=== PATIENT | female | born 1975 | race Caucasian/White ===

== ENCOUNTER 2024-12-01 08:17 | Inpatient (IN) | payer BC ==
[2024-12-01] VITALS (21 sets, daily range): BP systolic 89–124; BP diastolic 59–79; PULSE 72–101; RESP 8–18; TEMP 97.8–98.6; O2SAT 41–100
[~2024-12-01] VITALS: Ht 167.6 cm; Wt 53.0 kg
[2024-12-01] MEDS: diatr meglu/diatrizoate 30ml oral sol.-(3 dose) bottle PO SCH (09:15)
--- NOTE | 2024-12-01 09:15 | Physician Documentation ---
History of Present Illness Chief Complaint: Abdominal Pain Stated Complaint: ABD PAIN Time Seen by MD: 09:02 HPI This is a 49-year-old female who presents for evaluation of abdominal pain, distention. She developed constipation about a week ago. She started taking MiraLax. She finally had a bowel movement three days ago. Since then she continues to have no bowel movement and developed significant abdominal distention. Normally has flat abdomen. She does report that pain is waxing and waning in its intensity, was most severe last night. Right now it is moderate. She had developed nausea or vomiting. Denies any other symptoms. Denies any chance of . Denies any concerns for tobacco, alcohol or illicit substances use Medication Reconciliation Allergies: Coded Allergies: amoxicillin (Unverified Allergy, Unknown, 12/01/24) Review of Systems ROS 10 point review of systems was performed and unless noted above in HPI is negative for acute process/complaint. Physical Exam Vital Signs: Temperature: 98.1, Heart Rate: 116, Respiratory Rate: 16, BP: 149/82, Pulse Oximetry: 100, Weight: 53.000 Oxygen Flow Rate: 0 Physical Exam GENERAL: Awake, alert, oriented, GCS 15, no apparent distress, non-toxic appearing, answers questions, follows commands appropriately. Examined in bed 10. HEENT: Atraumatic, normocephalic, pupils equal, extraocular muscles intact, sclerae anicteric, mucus membranes moist, oropharynx is clear, no stridor. NECK: supple, full active range of motion, trachea midline, no thyromegaly, no lymphadenopathy, no JVD. CARDIOVASCULAR: regular rate/rhythm, no murmurs/gallops/rubs, Pulses are 2+ in all extremities and symmetric. Capillary refill less than 2 seconds. PULMONARY: Nonlabored, good air movement ,no respiratory distress, speaking in full sentences, clear to auscultation bilaterally, no wheezing, no ronchi, no rales, no accessory muscle use. GASTROINTESTINAL: Soft, mildly distended, diffusely tender to palpation, no guarding or rebound, normal active bowel sounds, no organomegaly, no pulsatile masses, no CVA tenderness. NEUROLOGIC: Lucid with normal mental status. Normal facial symmetry. Moves all extremities symmetrically and with purpose. No truncal ataxia. Speech is fluid without evidence of dysarthria or aphasia, no focal deficits appreciated. MUSCULOSKELETAL: There is full range of motion of all extremities. There is no joint pain or joint swelling or joint erythema. There is no muscle pain or tenderness or swelling. EXTREMITIES: warm, well-perfused, no cyanosis, no clubbing, no edema, no acute deformities. Skin: warm, dry, no rashes or lesions, no jaundice, no petechiae orpurpura. No ecchymosis. PSYCHIATRIC: Normal affect, normal insight, normal concentration. Focused exam: [] Progress Results/Orders Results/Orders Orders - YOSVANY HENRY DO Urinalysis, Cult If Indicated (12/01/24 08:26) Hcg, Ur Ql (12/01/24 08:26) Cbc/Diff (12/01/24 08:) BMP (12/01/24 08:) Lipase (12/01/24 08:26) CMP (12/01/24 08:) Vital Signs 12/01/24 08:18 Temp 98.1 Pulse 116 Resp 16 B/P (MAP) 149/82 Pulse Ox 100 O2 Flow Rate 0 Medical Decision Making Findings Facility Status: ED Holds, [facility] process The plan was discussed with the patient, who demonstrates clear understanding of the plan and is in agreement with the plan unless otherwise noted in the chart. All questions have been answered, all concerns were addressed unless otherwise documented. I was available throughout their ED stay for frequent reassessment and questions. Differential Diagnoses (considered and possible or likely): [Differential diagnosis considered includes acute appendicitis, acute cholecystitis, pancreatitis, gastritis, PUD, diverticulitis, mesenteric ischemia, abdominal aortic aneurysm, bowel obstruction, enteritis, colitis, fecal impaction, volvulus, IBS, inflammatory bowel disease, specific food intolerance, peritonitis, perforated viscous, malignancy, UTI, abscess, and abdominal pain NOS. Pelvic source of pain was also considered including endometritis, dysm enorrhea, ovarian cyst, ovarian torsion, PID, TOA, cervicitis, vaginitis, or uterine fibroid. History, physical exam, and workup exclude many of the more serious causes listed above. ] ??Differential Diagnoses (considered and unlikely, not requiring evaluation currently): [See above] MDM Data Please see HPI for the following: Independent Historians and external Records Review. Historian: [Patient] Independent Historians: ?[Record review] Medication Management: [Reviewed medication list] Social History and determinants: [Reviewed] Please see the body of the note for the following: Any independent interpretations of ECG, imaging studies. All vitals signs/haemodynamics, ordered tests were independently reviewed and interpreted by myself. Nursing triage complaint and vitals reviewed, additional nursing notes were reviewed as available and I agree unless otherwise noted or documented in contradiction in the chart Vital Signs: Independently reviewed Labs: Independently interpreted Imaging: Independently interpreted Old Medical Records: Independently reviewed, see HPI for relevant summary and information Pulse Oximetry: [98%] interpreted as [normal on room air] by me [Gaming Host: [Regular Rate, Regular rhythm, no ectopy, NSR] reviewed and interpreted by me] Additionally notably showing: [OrHemodynamics reviewed. The patient is tachycardic, improved with fluids, no evidence of hypotension respiratory distress. CBC is normal, no leukocytosis. Chemistry is essentially unremarkable except for very mild hypokalemia. Lipase is normal. She is not . UA is nondiagnostic for UTI. Imaging of the abdomen was obtained and the CT shows diffuse severe large bowel distention concerning for sigmoid volvulus versus high-grade narrowing of rectosigmoid colon.] Tests considered but not ordered include: [Not applicable] Social Determinants of Health Impact: Patient was evaluated in [facility] [place] to healthcare due to below par ratio of patient to medical providers. [] Comorbid Conditions Impacting Present Evaluation and Care/Treatment: [None] Management Discussions with other Healthcare Providers: [Dr. Heard, GI on- call. Recommend soapsuds enema trial, will consult on the patient. Also recommend surgical consultation. Dr. Castellanos, general surgeon on-call was contacted and HIPAA compliant message was left on his phone. Hospitalist regarding admission] Treatment and Disposition Medication Management (Given or considered): [Pain management]. See EMR for details Consideration for Hospitalization/Escalation/Deescalation of Care: Admission for observation has been considered, and is necessary for further management of her high-grade large bowel obstruction. ?ED Course:?[No clinical deterioration] ?Shared decision making:?[] Code status:?FULL Please see the full Electronic Medical Record for full details of nursing documentation, medications list, other records of complete past medical history and conditions, vital signs, laboratory studies, and any radiologic study interpretations by radiologists. Portions of this note were completed using [employer] dictation software and as a result there may exist minor errors in spel ling. I have reviewed elements of past family and social history and agree as included in note. Departure Disposition: ADMITTED INPATIENT Admitted to Inpatient Unit: to hospitalist Impression: Primary Impression: Large bowel obstruction Condition: Guarded Referrals: NO PRIMARY CARE PROVIDER (PCP) Signature Scribe Signature: No scribe Attestation: This note accurately reflects clinical decisions, work performed by myself, DO ELAINE Lutz NICHOLAS M DO Dec 01, 2024 09:15
[2024-12-01 09:39] LABS: MEAN PLATELET VOLUME 8.4 FL (7.4-10.4); RED CELL DISTRIBUTION WIDTH 12.6 % (11.5-14.5)
[2024-12-01 09:48] LABS: CREATININE 0.78 MG/DL (0.40-0.90); TOTAL CARBON DIOXIDE 29.1 MMOL/L (24-32); eCRCL 71 ML/MIN; eGFR 78 ML/MIN
[2024-12-01] MEDS: ondansetron/PF 4mg/2ml inj IV ONE (09:52)
[2024-12-01] MEDS: morphine 4 MG/ML inj SYRINge IV ONE (09:52)
[2024-12-01 10:17] LABS: LEUKOCYTE ESTERASE ,URINE NEGATIVE (Neg); NITRITES, URINE NEGATIVE (Neg); OCCULT BLOOD,URINE TRACE-INTACT (Neg)
[2024-12-01 10:22] LABS: UA COLLECTION TYPE URINAL
[2024-12-01] MEDS: IOHEXOL 12MG/ML oral solution 500 ML BOTTLE PO ONE (10:23)
[2024-12-01 10:24] LABS: MUCUS STRANDS MANY /LPF (Neg); SQUAMOUS EPITHELIAL CELL,UR MODERATE /LPF (FEW)
[2024-12-01] MEDS ORDERED: iohexol 300mg/ml 100ml inj. ONE (10:40)
--- NOTE | 2024-12-01 12:37 | RADIOLOGY REPORT ---
Exam: CT CT ABDOMEN PELVIS W/ IV ORAL CONTRAST History: Abdominal pain, distention, nausea vomiting COMPARISON: None Technique: Multidetector spiral CT of the abdomen and pelvis was performed from lung bases to pubic symphysis. Intravenous contrast was administered during this examination. Portal venous imaging was obtained. Axial, coronal and sagittal multiplanar reformats were performed by the technologist on a separate workstation. Radiation Dose : 1. Abdomen/Pelvis: CTDIvol 7.1 mGy, DLP 371 mGy*cm. Findings: Lung Bases: No acute or significant lung base finding. Normal heart size. No pleural or pericardial effusion. Liver: The liver is normal in size. No focal lesions. Normal hepatic vascular enhancement. Gallbladder and Biliary Tree: Unremarkable Spleen: Unremarkable Pancreas: The pancreas is normal in appearance without focal lesions or abnormal enhancement. Adrenal Glands: Unremarkable Kidneys: No hydronephrosis. Bladder: Unremarkable Bowel: The stomach is grossly normal in appearance. Severe diffuse large bowel distention. Possible narrowing of the sigmoid colon. The appendix is not visualized; however, no secondary findings of acute appendicitis identified. Ascites: Absent Lymphadenopathy: No mesenteric, retroperitoneal or periportal lymphadenopathy. Abdominal Wall and Mesentery: Unremarkable. Vasculature: The visualized abdominal aorta is normal in size and caliber. Abdominal and pelvic vessels demonstrate normal enhancement. Pelvic Organs: Unremarkable Musculoskeletal: No aggressive focal bony lesions, acute fractures or dislocation. IMPRESSION: Severe diffuse large bowel distention. Differential considerations could include sigmoid volvulus or high-grade narrowing of the rectosigmoid colon. GI and/or surgical consultation advised.
[2024-12-01] MEDS ORDERED: magnesium sulf-water 4G/100mL 100 ML IV PRN (13:20)
[2024-12-01] MEDS ORDERED: ondansetron/PF 4mg/2ml inj IV PRN (13:20)
[2024-12-01] MEDS ORDERED: mag hydrox/Alum hydrox/simeth 30ml oral suspension PO PRN (13:20)
[2024-12-01] MEDS ORDERED: potassium Cl 20 mEq SR tablet PO PRN (13:20)
[2024-12-01] MEDS ORDERED: magnesium hydroxide 30ml (MOM) UD suspension PO PRN (13:20)
[2024-12-01] MEDS ORDERED: magnesium sulf-water 2g/50mL 50 ML IV PRN (13:20)
[2024-12-01] MEDS: normal saline 1000ml 1,000 ML IV SCH (14:00)
[2024-12-01] MEDS: HYDROmorphone inj. 0.5 MG/0.5 ML DISP.SYRIN IV PRN (15:13)
[2024-12-01] MEDS ORDERED: diatr meglu/diatrizoate 30ml oral sol.-(3 dose) bottle ONE (15:19)
--- NOTE | 2024-12-01 16:34 | RADIOLOGY REPORT ---
EXAM: CT CT ABDOMEN PELVIS W/ RECTAL CON CONTRAST HISTORY: volvulus vs narrowing TECHNIQUE: Volumetric multidetector CT images of the abdomen and pelvis were obtained after the administration of intravenous contrast. All CT scans at this facility use dose modulation, iterative reconstruction, and/or weight based dosing when appropriate to reduce radiation dose to as low as reasonably achievable. COMPARISON: CT CT ABDOMEN PELVIS W/ IV ORAL CONTRAST on DOS: 12/01/24 FINDINGS: [LOWER CHEST]: The partially visualized lung bases are clear without a pleural effusion. intact bilateral breast implants. [LIVER]: Normal hepatic size without suspicious focal lesion. [GALLBLADDER AND BILIARY TREE]: No cholelithiasis. [SPLEEN]: Unremarkable. [PANCREAS]: Unremarkable. [ADRENAL GLANDS]: Unremarkable [KIDNEYS]: No hydronephrosis. No nephroureterolithiasis. No suspicious focal lesion. [BLADDER]: Decompressed with contrast internally [REPRODUCTIVE ORGANS]: Poorly visualized [BOWEL/MESENTERY]: Stomach is decompressed limiting its evaluation. Significant abnormal dilation of primarily of the colon measuring up to 6.9 cm. Rectal tube in place. Focal area of twisting located within the sigmoid colon compatible with sigmoid volvulus best appreciated on coronal view (series 601, image 38). [ASCITES]: Absent [LYMPHADENOPATHY]: No pathologically enlarged lymph nodes by CT size criteria [VASCULATURE]: No aneurysmal dilatation. [ABDOMINAL WALL]: Unremarkable. [MUSCULOSKELETAL]: No acute fracture or aggressive focal osseous lesion. IMPRESSION: 1. Sigmoid volvulus with significant abnormal dilation of the colon. 2. Downstream obstruction however overall appears incomplete secondary to rectal contrast extending beyond the twisting /narrowing.
--- NOTE | 2024-12-01 17:20 | CONSULTATION REPORT ---
Consult Providers to CC ~ History of Present Illness Reason for Admit\Complaint: Abdominal pain, distention History of Present Illness 49-year-old female who presents with the above complaints. Signs of symptoms initiated approximately 7 days ago. She denies any fever, chills. She admits to intermittent nausea and 1 or 2 episodes of vomiting. During the past week, she has tried laxatives. She states to have had small amounts of loose stool. Last bowel movement Allergies: Coded Allergies: amoxicillin (Unverified Allergy, Unknown, 12/01/24) Past Medical History Past Medical History Denies any significant past medical history Past Surgical History Surgical History Comment section x1 8 years ago Past Social History Social History Comment Denies any smoking, alcohol abuse or illicit drug use ROS ROS All within normal limits except HPI Exam Vitals: Vital Signs Date Time Temp Pulse Resp B/P (MAP) Pulse Ox O2 Delivery O2 Flow Rate FiO2 12/01/24 15:13 15 12/01/24 13:33 12/01/24 12:31 83 100 0 12/01/24 08:18 98.1 General: Well-nourished, mild distress HEENT: NC/AT, ROHIT, nonicteric, no nasal discharge, no pharyngeal exudates Neck: Supple, nontender Chest: Clear to auscultation Cardiovascular: Regular rate and rhythm Abdomen: Soft, distended, hypoactive bowel sounds, mild diffuse tenderness, no guarding, no rebound Extremities: No clubbing, cyanosis, or edema Central Nervous System: Alert and oriented x3, no gross or focal deficits Musculoskeletal: Good range of motion, no weaknesses Skin: Warm, dry, no diaphoresis Diagnostic Data Last Recorded Lab Results: 12/01/24 0911 12/01/24 0911 Diagnostic Data: EXAM: CT CT ABDOMEN PELVIS W/ RECTAL CON CONTRAST HISTORY: volvulus vs narrowing TECHNIQUE: Volumetric multidetector CT images of the abdomen and pelvis were obtained after the administration of intravenous contrast. All CT scans at this facility use dose modulation, iterative reconstruction, and/or weight based dosing when appropriate to reduce radiation dose to as low as reasonably achievable. COMPARISON: CT CT ABDOMEN PELVIS W/ IV ORAL CONTRAST on DOS: 12/01/24 FINDINGS: [LOWER CHEST]: The partially visualized lung bases are clear without a pleural effusion. intact bilateral breast implants. [LIVER]: Normal hepatic size without suspicious focal lesion. [GALLBLADDER AND BILIARY TREE]: No cholelithiasis. [SPLEEN]: Unremarkable. [PANCREAS]: Unremarkable. [ADRENAL GLANDS]: Unremarkable [KIDNEYS]: No hydronephrosis. No nephroureterolithiasis. No suspicious focal lesion. [BLADDER]: Decompressed with contrast internally [REPRODUCTIVE ORGANS]: Poorly visualized [BOWEL/MESENTERY]: Stomach is decompressed limiting its evaluation. Significant abnormal dilation of primarily of the colon measuring up to 6.9 cm. Rectal tube in place. Focal area of twisting located within the sigmoid colon compatible with sigmoid volvulus best appreciated on coronal view (series 601, image 38). [ASCITES]: Absent [LYMPHADENOPATHY]: No pathologically enlarged lymph nodes by CT size criteria [VASCULATURE]: No aneurysmal dilatation. [ABDOMINAL WALL]: Unremarkable. [MUSCULOSKELETAL]: No acute fracture or aggressive focal osseous lesion. IMPRESSION: 1. Sigmoid volvulus with significant abnormal dilation of the colon. 2. Downstream obstruction however overall appears incomplete secondary to rectal contrast extending beyond the twisting /narrowing. Problems: (1) Volvulus of sigmoid colon Status: Acute Assessment & Plan: Assessment: Sigmoid volvulus (as per CT findings). Plan: NPO, IV fluids. No plans for any emergent surgical intervention. Recommend colonoscopic decompression/detorsion. We will follow. PEDRO KAHN DO Dec 01, 2024 17:20
--- NOTE | 2024-12-01 17:42 | CONSULTATION REPORT - RESIDENT ---
Consult Providers to CC Resident Creating Document: MICHAELLIZBETH LOPESKETAN CAMACHO History of Present Illness Reason for Admit\Complaint: Sigmoid volvulus History of Present Illness 49-year-old very pleasant female without much past medical history presented to the ER with chief complaints of constipation, abdominal distention. She endorses that she is not passing stools and gas for the past 7 days. She reports abdominal distinct nonbleeding sensation for the past 7 days. She endorses vomiting for the past 1 day, 4-5 episodes, associated with fluid, green colored bile & associated with dry heaving but feeling better now. She denied fever, chills, jaundice, pedal edema, chest pain, palpations, shortness of breath, facial puffiness, slurring of speech, altered sensorium, weakness of limbs, seizures, deviation of angle of mouth. Allergies: Coded Allergies: amoxicillin (Unverified Allergy, Unknown, 12/01/24) Past Medical History Past Medical History Denies any specific past medical history Past Surgical History Surgical History Comment section, 18 years ago Past Social History Social History Comment Denies any smoking, alcohol abuse or illicit drug use ROS ROS All are negative except positive pertinent as in HPI Exam Vitals: Vital Signs Date Time Temp Pulse Resp B/P (MAP) Pulse Ox O2 Delivery O2 Flow Rate FiO2 12/01/24 15:13 15 12/01/24 13:33 12/01/24 12:31 83 100 0 12/01/24 08:18 98.1 General: General: Alert, awake, oriented to time place person. Well-nourished, not in acute distress HEENT: NC/AT, ROHIT, nonicteric, no nasal discharge, no pharyngeal exudates Neck: Supple, nontender Chest: Bilateral normal vesicular breath sounds heard. No crepitations/wheeze Cardiovascular: Regular rate and rhythm, S1-S2 heard, no murmurs/rubs/gallop Abdomen: Soft, distended, very sluggishly heard bowel sounds , mild diffuse tenderness, no guarding, no rebound tenderness. Extremities: No clubbing, cyanosis, or edema Central Nervous System: Alert and oriented x3, no gross or focal deficits Musculoskeletal: Good range of motion, no weaknesses Skin: Warm, dry, no diaphoresis Diagnostic Data Last Recorded Lab Results: 12/01/24 0911 12/01/24 0911 Additional Plan Sigmoid volvulus Vitals are stable CBC is normal Serum potassium is 3.2 CT abdomen shows diffuse large bowel distention. Contrast CT abdomen pelvis showed sigmoid volvulus with significant abdominal dilation of the colon with the downstream obstruction. NPO Continue IV fluids at the rate of 125 mL/hour We will plan for sigmoidoscopic decompression on today Continue Zofran 4 mg q.6h p.r.n. Hypokalemia Potassium is 3.2 Replace per potassium replacement IV protocol Joseph Win IM resident, PGY 2 Gastroenterology Date of Service: Dec 01, 2024 Billing Provider: BOLA ESCAMILLA MD, VENKATESH, RES Dec 01, 2024 17:42
[2024-12-01] MEDS ORDERED: SUMA100T PO (17:51)
[2024-12-01] MEDS ORDERED: fentaNYL/PF 50MCG/1 ML 2ML syringe ONE (18:37)
[2024-12-01] MEDS ORDERED: MIDAZolam 1 MG/ML 5ML VIAL ONE (18:38)
[2024-12-01] MEDS: enoxaparin 40mg/0.4ml syringe SQ SCH (20:00)
[2024-12-01] MEDS: K and/or MAG REPLACEMENT MC SCH (20:00)
[2024-12-01] MEDS ORDERED: metoclopramide 5 mg/ml inj IV PRN (21:10)
--- NOTE | 2024-12-01 21:10 | HISTORY AND PHYSICAL ---
History & Physical Providers to ~ History of Present Illness Reason for Admit\Complaint: Significant abdominal distention-sigmoid volvulus History of Present Illness This is a healthy 49-year-old female who presents for evaluation for abdominal pain in his distention. The patient has actually had issues and changes in bowel habits since she had a in 2016 however these were mild an over the last year however the patient has had change in her bowel habits and having a bowel movement every five days and the quality of the stools have changed and are more stringy and foamy. The patient had a colonoscopy in July however Dr Patton yard operator had informed the patient she did not have a good bowel prep and requested that the patient complete a bowel prep the following day the patient went back for a colonoscopy and was informed again that her bowel prep was not complete over the past six days the patient has had a significant abdominal distention and was experiencing severe pain initially however this the pain subsided and took MiraLax on five days ago and four days ago and has a bowel movement and has a another dose of MiraLax the following day however the distention did not improve the patient decided come to the ED and a CT scan demonstrated severe dilatation of the colon and a possible narrowing at the rectosigmoid junction a repeat CT scan with rectal contrast demonstrated a sigmoid volvulus the patient has since went for a colonoscopy decompression with Dr. Du and a rectal tube was placed past the volvulus and was evaluated by Dr. Castellanos surgeon who recommended keeping the rectal tube in and obtaining KUB is to monitor and to give Reglan IV 5 mg. Allergies: Coded Allergies: amoxicillin (Unverified Allergy, Unknown, 12/01/24) Home Medications Home Medications Active Reported Imitrex* (Sumatriptan Succinate) 100 Mg Tablet 1 Tab PO PRN PRN give 1 tablet at onset of headache. May repeat in 2 hours as needed. Do not exceed 200mg/day total. Past Medical History Past Medical History No chronic health issues Past Surgical History Surgical History Comment Family History Family History: Patient reports no known family medical history. Past Social History Social History Comment Patient denes history of smoking/ drinking alcohol nor any illicit drug use Full Code Status ROS ROS Except for positives in the HPI the rest of the 14 point review systems is negative Exam Vitals: Vital Signs Date Time Temp Pulse Resp B/P (MAP) Pulse Ox O2 Delivery O2 Flow Rate FiO2 12/01/24 20:30 79 12 112/60 (77) 100 Nasal Cannula 2.0 12/01/24 19:28 99.7 General: Gen. No acute distress alert and oriented 4 Lungs clear to ascultation bilaterally, no wheezes rales or rhonchi appreciated Heart normal sinus rhythm no murmurs rubs or clicks noted Abdomen significantly distended semi firm nontender bowel sounds are tympanic Lower extremities no clubbing cyanosis, nor edema appreciated bilaterally Diagnostic Data Last Recorded Lab Results: 12/01/24 0911 12/01/24 0911 Advance Care Planning Advanced Care plannin - 30 Minutes Problems: (1) Volvulus of sigmoid colon Status: Acute Additional Plan # sigmoid volvulus which was confirmed on CT scan with rectal contrast Status post decompression via colonoscopy with yard operator with a rectal tube past pass the volvulus Dr. Castellanos surgeon recommends keeping the rectal tube in follow daily KUB is and start scheduled Reglan 5 mg IV # hypokalemia Potassium replacement protocol # DVT prophylaxis SCDs I spent a total of 17 minutes on reviewing various resuscitative measures/ ACP with the patient at the time of admission. The patient has decided on full code status Date of Service: Dec 01, 2024 Billing Provider: CULLEN WORLEY DO Common Visit Codes: 08708-[id number] INP/OBS CARE (HIGH) Secondary Visit Codes: 58833-[id number] CARE PLAN 30 MINUTES CULLEN WORLEY DO Dec 01, 2024 21:10
[2024-12-01] MEDS: docusate sod 100mg capsule PO SCH (21:38)
[2024-12-01] MEDS: potassium Cl 40MEQ/1/2NS 520ml 520 ML IV PRN (21:39)
[2024-12-02] VITALS (7 sets, daily range): BP systolic 113–128; BP diastolic 63–86; PULSE 67–84; RESP 14–18; TEMP 97.6–98; O2SAT 98–100
[2024-12-02 04:59] LABS: MEAN PLATELET VOLUME 8.0 FL (7.4-10.4); RED CELL DISTRIBUTION WIDTH 12.8 % (11.5-14.5)
[2024-12-02 05:16] LABS: CREATININE 0.49 MG/DL (0.40-0.90); TOTAL CARBON DIOXIDE 25.4 MMOL/L (24-32); eCRCL 114 ML/MIN; eGFR > 90 ML/MIN
--- NOTE | 2024-12-02 08:42 | RADIOLOGY REPORT ---
Date: 12/02/2024 07:28 AM Examination: DI ABDOMEN,SINGLE VIEW(KUB) History: Sigmoid volvulus re-evaluation of colonic distention Comparison: CT CT ABDOMEN PELVIS W/ RECTAL CON CONTRAST on DOS: 12/01/24, CT CT ABDOMEN PELVIS W/ IV ORAL CONTRAST on DOS: 12/01/24 TECHNIQUE: Frontal views of the abdomen was obtained. FINDINGS/IMPRESSION: Sigmoid volvulus with significant abnormal dilation of the colon. No interval change.
--- NOTE | 2024-12-02 08:44 | PROGRESS NOTE- Residence ---
Progress Note - Resident Providers to CC Resident Creating Document: MARIANNA QUAN RES ~ Antibiotic Timeout Antibiotic Ordered?: No Subjective Seen And examined the patient at bedside. She reports that symptomatically better with abdominal distention after sigmoidoscopic detorsion/decompression. She denied vomiting, abdominal pain. Objective Vital Signs Date Time Temp Pulse Resp B/P (MAP) Pulse Ox O2 Delivery O2 Flow Rate FiO2 12/02/24 06:00 98.0 70 16 128/86 (100) 98 Room Air 12/01/24 20:30 2.0 Result Diagram: 12/02/2444812/02/24448 General: Alert, awake, oriented to time place person. Well-nourished, not in acute distress HEENT: NC/AT, ROHIT, nonicteric, no nasal discharge, no pharyngeal exudates Neck: Supple, nontender Chest: Bilateral normal vesicular breath sounds heard. No crepitations/wheeze Cardiovascular: Regular rate and rhythm, S1-S2 heard, no murmurs/rubs/gallop Abdomen: Soft, distention is improved from yesterday, hypoactive bowel sounds. mild tenderness in right iliac fossa. no guarding, no rebound tenderness. Extremities: No clubbing, cyanosis, or edema Central Nervous System: Alert and oriented x3, no gross or focal deficits Musculoskeletal: Good range of motion, no weaknesses Skin: Warm, dry, no diaphoresis Advance Care Planning Advanced Care plannin - 30 Minutes Plan Plan Sigmoid volvulus Vitals are stable Significant drop in hemoglobin by 2.8., from 13.8-11 Serum potassium is 3.2 CT abdomen shows diffuse large bowel distention. Contrast CT abdomen pelvis showed sigmoid volvulus with significant abdominal dilation of the colon with the downstream obstruction. Even though the official report of X-ray abdomen after procedure on 12/02/2024 shows no interval change but on reviewing the x-ray , volvulus is still there but improved from yesterday. Clear liquid diet. If rectal tube is comes out, it is okay to leave out and encourage ambulation Dulcolax 5 mg x 4 tablets Recommended for full bowel prep with GoLYTELY Continue IV fluids at the rate of 125 mL/hour Patient may need the colonoscopy Continue Zofran 4 mg q.6h p.r.n. Hypokalemia Potassium is 3.2 Replace per potassium replacement IV protocol Hypoalbuminemia Plan per hospitalist team Marianna Quan IM resident, PGY 2 Gastroenterology Date of Service: Dec 02, 2024 Billing Provider: BOLA ESCAMILLA MD,MARIANNA, RES Dec 02, 2024 08:44
--- NOTE | 2024-12-02 09:25 | PROGRESS NOTE ---
Progress Note Dictate Providers to CC ~ Progress Note: Patient seen, admitted for sigmoid volvulus. Central Line/PICC still needed: N\A Antibiotic Ordered?: No MRSA Education MRSA Education Provided to pt: N/A Subjective Subjective Patient seen, status post colonoscopic decompression of sigmoid volvulus. Patient states he is doing well. Abdomen less distended. Denies any abdominal pain. Objective Vitals Vital Signs Date Time Temp Pulse Resp B/P (MAP) Pulse Ox O2 Delivery O2 Flow Rate FiO2 12/02/24 06:00 98.0 70 16 128/86 (100) 98 Room Air 12/01/24 20:30 2.0 Lab Results: 12/02/24 0449 12/02/24 0449 Objective Lungs: Clear CVS: RRR Abdomen: Soft, significantly less distended, +BS, nontender Rectal tube in place, minimal stool Problem\Assessment\Plan Problems/Diagnosis: (1) Volvulus of sigmoid colon Assessment & Plan: Assessment: Sigmoid volvulus. Clinically stable s/p decompression Plan: NPO, IV fluids. No plans for any emergent surgical intervention. Possible repeat colonoscopy. PEDRO KAHN DO Dec 02, 2024 09:25
[2024-12-02] MEDS: bisacodyl 5mg tablet.DR PO ONE (10:02)
[2024-12-02] MEDS: PEG 3350/Na sulf,bicarb,Cl/KCl oral sol 4 liter bottle PO ONE ×2 (10:03→22:13)
[2024-12-02] MEDS: acetaminophen 1,000mg/100ml IV 100 ML IV PRN (13:21)
[2024-12-02] MEDS ORDERED: PEG 3350/Na sulf,bicarb,Cl/KCl oral sol 4 liter bottle PO ONE ×2 (14:10→21:50)
--- NOTE | 2024-12-02 21:19 | PROGRESS NOTE ---
Daily Progress Note Providers to CC ~ Antibiotic Timeout Antibiotic Ordered?: No Subjective The patient is abdomen is significantly less distended today and the patient is in the midst of a GoLYTELY bowel prep in his having significant loose stooling. The patient has a headache this morning and I started the patient on IV acetaminophen as needed Objective Vital Signs Date Time Temp Pulse Resp B/P (MAP) Pulse Ox O2 Delivery O2 Flow Rate FiO2 12/02/24 10:00 97.9 84 16 123/75 (91) 99 Room Air 12/01/24 20:30 2.0 Result Diagram: 12/02/2444812/02/24448 Problem\Assessment\Plan Problems/Diagnosis: (1) Volvulus of sigmoid colon # sigmoid volvulus which was confirmed on CT scan with rectal contrast Status post decompression via colonoscopy with eating disorder specialist with a rectal tube past pass the volvulus Dr. Castellanos surgeon recommends keeping the rectal tube in follow daily KUB is and start scheduled Reglan 5 mg IV 12/02 significantly improved- a rectal tube fell out and the patient is now on a GoLYTELY bowel prep anticipate colonoscopy tomorrow morning. # hypokalemia Potassium replacement protocol 12/02 solved # DVT prophylaxis SCDs Date of Service: Dec 02, 2024 Billing Provider: CULLEN WORLEY DO Common Visit Codes: [id number] INP/OBS CARE(HIGH) CULLEN WORLEY DO Dec 02, 2024 21:19
[2024-12-02] MEDS: HYDROmorphone/PF 0.2 MG/ML SYRINGE IV PRN (23:55)
[2024-12-03] VITALS (13 sets, daily range): BP systolic 96–123; BP diastolic 53–74; PULSE 60–92; RESP 10–17; TEMP 98; O2SAT 96–100
[2024-12-03 06:28] LABS: MEAN PLATELET VOLUME 8.7 FL (7.4-10.4); RED CELL DISTRIBUTION WIDTH 12.8 % (11.5-14.5)
--- NOTE | 2024-12-03 06:45 | RADIOLOGY REPORT ---
Exam: DI ABDOMEN,SINGLE VIEW(KUB) Indication: Sigmoid volvulus re-evaluation of colonic distention Comparison: DI ABDOMEN,SINGLE VIEW(KUB) on DOS: 12/02/24, CT CT ABDOMEN PELVIS W/ RECTAL CON CONTRAST on DOS: 12/01/24, CT CT ABDOMEN PELVIS W/ IV ORAL CONTRAST on DOS: 12/01/24 Technique: Single radiographic view of the abdomen. Findings: Persistently dilated gas-filled segments of colon throughout the abdomen without significant interval change. There is no definite evidence for pneumoperitoneum. No abnormal calcifications noted. Impression: 1. Persistently dilated gas-filled segments of colon throughout the abdomen without significant interval change.
[2024-12-03 06:52] LABS: CREATININE 0.59 MG/DL (0.40-0.90); TOTAL CARBON DIOXIDE 23.7 MMOL/L (24-32); eCRCL 94 ML/MIN; eGFR > 90 ML/MIN
[2024-12-03] MEDS: dextrose 50%-water 50ml dispensing syringe IV ONE (08:40)
[2024-12-03] MEDS ORDERED: fentaNYL/PF 50MCG/1 ML 2ML syringe ONE ×2 (09:47→10:09)
[2024-12-03] MEDS ORDERED: MIDAZolam 1 MG/ML 5ML VIAL ONE ×2 (09:48→10:13)
--- NOTE | 2024-12-03 11:21 | PROGRESS NOTE ---
Progress Progress Note: Patient admitted for sigmoid volvulus. Currently seen, status post colonoscopy with adequate study to the cecum. Patient denies any pain, abdomen is significantly less distended. Exam General Appearance: alert, no apparent distress General Appearance Comfortable GI Physical Exam: normal palpation, non-tender, bowels sounds present Problem\Assessment\Plan Problems/Diagnosis: (1) Volvulus of sigmoid colon Status: Resolved Assessment & Plan: Assessment: Sigmoid volvulus resolved with colonoscopic decompression. Plan: No further acute surgical follow-up. Follow-up with Dr. Castellanos for surgical options. Results/Orders Result Diagram: 12/03/24 0551 12/03/24 0551 Dietary Evaluation Comments: S 12/06 Will provide full nutrition assessment on above date. PEDRO CASTELLANOS DO Dec 03, 2024 11:21
[2024-12-03] MEDS: potassium Cl 20 mEq SR tablet PO PRN (14:18)
--- NOTE | 2024-12-03 20:45 | DISCHARGE SUMMARY ---
Discharge Summary Providers to CC ~ Discharge Summary Admission Diagnosis: Large bowel severe dilatation possible stricture Hospital Course DATE OF ADMISSION: 12/01/2024 DATE OF DISCHARGE: 12/03/2024 Discharge Diagnosis\Comment: Sigmoid volvulus Hypokalemia Operations\Procedures: Colonoscopy volvulus decompression with repeat colonoscopy Consultants: Dr. Castellanos surgeon, Dr. Ziegler char conveyor tender Complications: None Condition on DC: Stable Continued Medications: Sumatriptan Succinate (Imitrex*) 100 Mg Tablet 1 TAB PO PRN PRN for headache, #1 TAB give 1 tablet at onset of headache. May repeat in 2 hours as needed. Do not exceed 200mg/day total. Discharge Summary: I admitted the patient with the following HPI:This is a healthy 49-year-old female who presents for evaluation for abdominal pain in his distention. The patient has actually had issues and changes in bowel habits since she had a C- section in 2016 however these were mild an over the last year however the patient has had change in her bowel habits and having a bowel movement every five days and the quality of the stools have changed and are more stringy and foamy. The patient had a colonoscopy in July however Dr Patton char conveyor tender had informed the patient she did not have a good bowel prep and requested that the patient complete a bowel prep the following day the patient went back for a colonoscopy and was informed again that her bowel prep was not complete over the past six days the patient has had a significant abdominal distention and was experiencing severe pain initially however this the pain subsided and took MiraLax on five days ago and four days ago and has a bowel movement and has a another dose of MiraLax the following day however the distention did not improve the patient decided come to the ED and a CT scan demonstrated severe dilatation of the colon and a possible narrowing at the rectosigmoid junction a repeat CT scan with rectal contrast demonstrated a sigmoid volvulus the patient has since went for a colonoscopy decompression with Dr. Du and a rectal tube was placed past the volvulus and was evaluated by Dr. Castellanos surgeon who recommended keeping the rectal tube in and obtaining KUB is to monitor and to give Reglan IV 5 mg. The patient was scheduled for a colonoscopy on the however she had finished a bowel prep and still had brownish colored fluid in the toilet and has a complete a 2nd bowel prep. The patient has a colonoscopy which was unremarkable however there was still some stool in her cecum- per char conveyor tender the patient had a lot of redundancy of her sigmoid colon and will require surgery at a later date. Dr. Castellanos recommended follow up in the outpatient setting and will set up an elective sigmoid colectomy. The patient did have hypokalemia as well her serum potassium was 3.3 on the the patient is given 40 mEq of p.o. potassium chloride. The patient is cleared to be discharged by both. Surgery and Gastroenterology on the Gen. No acute distress alert and oriented 4 Lungs clear to ascultation bilaterally, no wheezes rales or rhonchi appreciated Heart normal sinus rhythm no murmurs rubs or clicks noted Abdomen mildly distended soft nontender bowel sounds are normoactive Lower extremities no clubbing cyanosis, nor edema appreciated bilaterally The patient felt ready to be discharged and was medically cleared to be discharged on 12/03/2024 The patient was seen and evaluated on day of discharge. Time spent on discharge 35 minutes including coordination of care speaking to specialists reviewing the images of the colonoscopy. *Problems/Diagnosis: (1) Volvulus of sigmoid colon Status: Resolved Total Time Spent on D/C: > 30 Minutes Date of Service: Dec 03, 2024 Billing Provider: CULLEN WORLEY DO Common Visit Codes: 51585-DTJ/OBS DISCH DAY >30min CULLEN WORLEY DO Dec 03, 2024 20:34
== END 2024-12-03 14:58 | disposition home or self-care (01) | DRG 389 ==
LOC: ER 08:18 → ED HOLD 13:23 → EDBEDREQ 15:16 → SUR 3N 15:40
PROVIDERS: ADMIT Family Medicine; ATTEND Family Medicine
PROC: BW211ZZ Computerized Tomography (CT Scan) of Abdomen and Pelvis using Low Osmolar Contrast (ICD-10-PCS; principal; 2024-12-01)
PROC: 0D7N8ZZ Dilation of Sigmoid Colon, Via Natural or Artificial Opening Endoscopic (ICD-10-PCS; 2024-12-01)
PROC: 0D9N80Z Drainage of Sigmoid Colon with Drainage Device, Via Natural or Artificial Opening Endoscopic (ICD-10-PCS; 2024-12-01)
PROC: 0DJD8ZZ Inspection of Lower Intestinal Tract, Via Natural or Artificial Opening Endoscopic (ICD-10-PCS; 2024-12-03)
DX: K56.2 Volvulus (principal); K59.39 Other megacolon; Q43.8 Other specified congenital malformations of intestine; E87.6 Hypokalemia; K64.8 Other hemorrhoids; R93.3 Abnormal findings on diagnostic imaging of other parts of digestive tract; E88.09 Other disorders of plasma-protein metabolism, not elsewhere classified; Z87.891 Personal history of nicotine dependence; Z88.1 Allergy status to other antibiotic agents
CPT/HCPCS: 36415; 45337; 45378; 74018; 74176; 74177; 80053; 81001; 82948; 83690; 83735; 84702; 85025; 87081; 96361; 96374; 96375; 99152; 99153; 99285; A4620; G0378; J0131; J0780; J1171; J2250; J2270; J2405; J3010; J3480; J7030; J7120; Q9963; Q9967

== ENCOUNTER 2025-01-19 10:16 | Inpatient (IN) | payer BC ==
[~2025-01-19] VITALS: Ht 167.6 cm; Wt 55.5 kg
[2025-01-19] VITALS (22 sets, daily range): BP systolic 78–121; BP diastolic 40–84; PULSE 51–80; RESP 11–18; TEMP 97.7–98.4; O2SAT 98–100
[~2025-01-19 10:16] MED LIST: SUMA100T PO
[2025-01-19] MEDS: ondansetron 4mg rapidly disintigrating tab PO ONE (11:15)
--- NOTE | 2025-01-19 11:21 | Physician Documentation ---
History of Present Illness Chief Complaint: Abdominal Pain Stated Complaint: STOMACH ISSUE Time Seen by MD: 11:03 HPI Patient did have a hospitalization at this facility on December 01 through December 03, 2024. She had presented to the emergency department at that time due to abdominal distention and pain. She was ultimately found to has a have severe dilatation of the colon and rectosigmoid junction narrowing. She underwent decompression with rectal tube placement. Patient presents today due to constipation with abdominal distention times the last 11 days. She has done every every intervention she can think of the at home including two enemas. She did have a small bowel movement two days ago and was passing gas. However, today, she is markedly more distended in is not passing gas. She is nauseous, no vomiting. She is scheduled to see a [place] specialist for a colon resection. Has had one appointment with Dr. Smith via telemed. Medication Reconciliation Allergies: Coded Allergies: amoxicillin (Unverified Allergy, Unknown, 01/19/25) Scheduled PRN Sumatriptan Succinate (Imitrex*), 1 TAB PO PRN PRN for headache, (Reported) Past Medical History Patient History: Patient reports no known family medical history. Review of Systems ROS As stated above in the HPI, otherwise all systems are reviewed and negative. Physical Exam Vital Signs: Temperature: 97.4, Source: Temporal, Heart Rate: 100, Respiratory Rate: 16, BP: 114/72, Pulse Oximetry: 97, Weight: 55.500 Oxygen Flow Rate: 0 Physical Exam General: Alert, no apparent distress. HEENT: PERRL, EOMI, no injection, moist mucous membranes. Neck: Full range of motion. Respiratory: Lungs clear, no respiratory distress. Chest: No accessory muscle use. Cardiovascular: Regular rate and rhythm, no murmurs. Gastrointestinal: Firm, distended, TTP throughout. No rebound or guarding. bowels sounds present. Rectal: Good rectal tone. No stool in vault. Extremities: Normal range of motion, no deformity. Neurologic: Oriented x4. Psychiatric: Normal mood and affect. Skin: Normal color, warm and dry. No edema, no ecchymosis. Progress Progress Note 1258: [place] [facility] Dr. Smith contacted, asks that her cell number [phone] be provided to our property consultant GI specialist. 1335: Spoke with on-call GI, Dr. Heard. Requests tap water enema FINA. She is agreeable to consulting on patient with plan to decompressive colonoscopy. Paged the hospitalist to admit patient. Results/Orders Results/Orders Completed Orders - NESSA MASTERSON [employer]OWER Ondansetron Disint. Tablet (Zofran Odt T (01/19/25 11:05) Medications Received in ER Medications (Trade) Dose Ordered Sig/Chelle Route PRN Reason Start Time Stop Time Status Last Admin Dose Admin (Zofran ODT tablet) 4 mg ONCE ONCE PO 01/19/25 11:05 01/19/25 11:06 DC 01/19/25 11:15 4 MG Vital Signs 01/19/25 01/19/25 10:21 11:18 Temp 97.4 Pulse 82 100 Resp 16 B/P (MAP) 139/49 114/72 (86) Pulse Ox 100 97 O2 Flow Rate 0 EKG/XRAY/CT/US/VASC/MRI CT : [address] [address] CAT SCAN Patient: NIC PICKARD Medical Record: [id number] [facility] : 1975, Age: 49 Sex: Female Location: ER Patient Status: REG ER Service Date/Time: 01/19/25/ 1237 Ordering Physician: NESSA MASTERSON [employer]OWER Exam: CT ABDOMEN PELVIS Exam: CT CT ABDOMEN PELVIS W/ IV CONTRAST History: abd distention. Comparison Study: CT CT ABDOMEN PELVIS W/ RECTAL CON CONTRAST on DOS: 12/01/24 Technique: Multidetector spiral CT of the abdomen was performed from lung bases to pubic symphysis. Axial imaging was performed with intravenous contrast following the uneventful administration of 100 ml Omnipaque 300. Coronal and sagittal multiplanar reformats were obtained from the axial data set by the technologist. Radiation Dose : 1. Abdomen/Pelvis: CTDIvol 7.1 mGy, DLP 346.3 mGy*cm. Findings: Lung Bases: Lung bases are clear. Visualized portions of the heart and pericardi um are unremarkable. Liver: The liver is normal in size. No focal lesions. Gallbladder and Biliary Tree: The gallbladder is unremarkable No intrahepatic or extrahepatic biliary ductal dilatation. Spleen: Unremarkable Pancreas: The pancreas enhances normally and there are no focal lesions. The main pancreatic duct is not dilated Adrenal Glands: Unremarkable Kidneys: Kidneys enhance symmetrically. No calculi or hydronephrosis. GI tract: The stomach is grossly normal in appearance.. No evidence of small bowel wall thickening or abnormal dilatation to suggest bowel obstruction. There is significant distention of the colon secondary to focal twisting of the sigmoid colon seen in the left lower quadrant, consistent with sigmoid volvulus. There is diffuse stool throughout the colon reflecting constipation. There is fluid in the rectum. No findings to suggest acute appendicitis. Peritoneum/mesentery/retroperitoneum. No evidence of free intraperitoneal air. No ascites. No evidence of suspicious lymphadenopathy. Abdominal Wall: Unremarkable. Vasculature: Abdominal aorta and main branches are unremarkable. Normal vascular enhancement. Urinary Bladder: Grossly unremarkable for degree of distention. Pelvic Organs: Unremarkable Musculoskeletal: No aggressive focal bony lesions, acute fractures or dislocation. Soft tissues: Bilateral breast implants. IMPRESSION: 1. Sigmoid volvulus causing colonic obstruction. 2. Constipation. Electronically Signed by:JONNY MORALES MD Date & Time: 01/19/25 1309 Dictated by: JONNY MORALES MD Dictation date and time: 01/19/25 1237 Primary Care Provider: NO PRIMARY CARE PROVIDER cc: NESSA MASTERSON [employer] ~ Medical Decision Making Additional information obtaine: old records, PCP Findings Spoke with patient's surgeon, Dr. Smith. Reviewed old records. 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 This is the most likely etiology , especially given the chronicity and known anatomic lesion.[1-2] Fecal impaction: Chronic constipation and stricture predispose to fecal impaction, which can present with distension, pain, and worsening obstruction. Fecal impaction may coexist with or exacerbate mechanical obstruction.[3] Sigmoid volvulus: Strictures and chronic constipation increase the risk of volvulus, which presents with [id number] obstruction, distension, and obstipation. Volvulus should be considered, especially if imaging shows a coffee ronquillo sign or massively dilated colon.[2] Acute colonic pseudo-obstruction (Ogilvies syndrome): Although less likely given the mechanical history, pseudo-obstruction can mimic true obstruction, especially in patients with chronic illness or recent instrumentation.[2][4] Paralytic ileus: Functional obstruction due to impaired motility may occur secondary to severe d istension, infection, or medications, but is less likely with a known stricture and complete obstipation. Most Important Not to Miss Diagnoses Bowel perforation with peritonitis: Perforation is a life-threatening complication of obstruction. Rule out with careful physical exam (peritonitis, rebound, guarding), laboratory markers (leukocytosis, lactic acidosis), and urgent CT imaging for free air.[5] Ischemic colitis/strangulated obstruction: Prolonged obstruction can compromise blood flow, leading to ischemia or necrosis. Look for severe pain, fever, leukocytosis, and imaging findings of bowel wall thickening, pneumatosis, or portal venous gas.[6] Toxic megacolon: Massive colonic dilation with systemic toxicity can occur in severe obstruction or underlying IBD. Monitor for fever, tachycardia, hypotension, and radiographic evidence of colonic dilation >6 cm.[7] Departure Time of Disposition: 13:55 Disposition: 09 ADMITTED INPATIENT Admitted to Inpatient Unit: yes, to hospitalist Impression: Primary Impression: Volvulus of sigmoid colon Referrals: NO PRIMARY CARE PROVIDER (PCP) Signature Scribe Signature: x Attestation: The note accurately reflects work and decisions made by me.Nessa Belcher NP 01/19/25 11:33 NESSA MASTERSON NP Jan 19, 2025 11:20
[2025-01-19 11:41] LABS: MEAN PLATELET VOLUME 8.3 FL (7.4-10.4); RED CELL DISTRIBUTION WIDTH 12.4 % (11.5-14.5)
[2025-01-19 12:02] LABS: CREATININE 0.75 MG/DL (0.40-0.90); TOTAL CARBON DIOXIDE 29.5 MMOL/L (24-32); eCRCL 78 ML/MIN; eGFR 81 ML/MIN
[2025-01-19] MEDS: HYDROcodone/acetaminophen 5mg/325mg tablet PO ONE (12:03)
[2025-01-19] MEDS ORDERED: iohexol 300mg/ml 100ml inj. ONE (12:05)
[2025-01-19 12:38] LABS: URINE HCG NEGATIVE (NEG)
[2025-01-19 12:40] LABS: LEUKOCYTE ESTERASE ,URINE NEGATIVE (Neg); NITRITES, URINE NEGATIVE (Neg); OCCULT BLOOD,URINE TRACE-INTACT (Neg)
[2025-01-19 12:44] LABS: UA COLLECTION TYPE CLN CATCH MIDSTREAM
[2025-01-19 12:51] LABS: SQUAMOUS EPITHELIAL CELL,UR FEW /LPF (FEW)
--- NOTE | 2025-01-19 13:11 | RADIOLOGY REPORT ---
Exam: CT CT ABDOMEN PELVIS W/ IV CONTRAST History: abd distention. Comparison Study: CT CT ABDOMEN PELVIS W/ RECTAL CON CONTRAST on DOS: 12/01/24 Technique: Multidetector spiral CT of the abdomen was performed from lung bases to pubic symphysis. Axial imaging was performed with intravenous contrast following the uneventful administration of 100 ml Omnipaque 300. Coronal and sagittal multiplanar reformats were obtained from the axial data set by the technologist. Radiation Dose : 1. Abdomen/Pelvis: CTDIvol 7.1 mGy, DLP 346.3 mGy*cm. Findings: Lung Bases: Lung bases are clear. Visualized portions of the heart and pericardium are unremarkable. Liver: The liver is normal in size. No focal lesions. Gallbladder and Biliary Tree: The gallbladder is unremarkable No intrahepatic or extrahepatic biliary ductal dilatation. Spleen: Unremarkable Pancreas: The pancreas enhances normally and there are no focal lesions. The main pancreatic duct is not dilated Adrenal Glands: Unremarkable Kidneys: Kidneys enhance symmetrically. No calculi or hydronephrosis. GI tract: The stomach is grossly normal in appearance.. No evidence of small bowel wall thickening or abnormal dilatation to suggest bowel obstruction. There is significant distention of the colon secondary to focal twisting of the sigmoid colon seen in the left lower quadrant, consistent with sigmoid volvulus. There is diffuse stool throughout the colon reflecting constipation. There is fluid in the rectum. No findings to suggest acute appendicitis. Peritoneum/mesentery/retroperitoneum. No evidence of free intraperitoneal air. No ascites. No evidence of suspicious lymphadenopathy. Abdominal Wall: Unremarkable. Vasculature: Abdominal aorta and main branches are unremarkable. Normal vascular enhancement. Urinary Bladder: Grossly unremarkable for degree of distention. Pelvic Organs: Unremarkable Musculoskeletal: No aggressive focal bony lesions, acute fractures or dislocation. Soft tissues: Bilateral breast implants. IMPRESSION: 1. Sigmoid volvulus causing colonic obstruction. 2. Constipation.
[2025-01-19] MEDS ORDERED: ondansetron/PF 4mg/2ml inj IV PRN (14:10)
[2025-01-19] MEDS ORDERED: magnesium sulf-water 4G/100mL 100 ML IV PRN (14:10)
[2025-01-19] MEDS ORDERED: magnesium sulf-water 2g/50mL 50 ML IV PRN (14:10)
[2025-01-19] MEDS ORDERED: magnesium hydroxide 30ml (MOM) UD suspension PO PRN (14:10)
[2025-01-19] MEDS ORDERED: potassium Cl 20 mEq SR tablet PO PRN ×2 (14:10)
[2025-01-19] MEDS ORDERED: mag hydrox/Alum hydrox/simeth 30ml oral suspension PO PRN (14:10)
[2025-01-19] MEDS ORDERED: potassium Cl 40MEQ/1/2NS 520ml 520 ML IV PRN (14:10)
[2025-01-19] MEDS ORDERED: midazolam 1 mg/ML 2ml injection ONE (16:32)
[2025-01-19] MEDS ORDERED: fentaNYL/PF 50MCG/1 ML 2ML syringe ONE (16:32)
[2025-01-19] MEDS ORDERED: propofol inj 20 ML IV ONE ×2 (16:51)
--- NOTE | 2025-01-19 17:02 | HISTORY AND PHYSICAL ---
History & Physical Providers to CC ~ History of Present Illness Reason for Admit\Complaint: AC Sigmoid volvulus\ Nausea and a abdominal distention History of Present Illness This is a athletic and healthy 49-year-old female who was here in November with a sigmoid volvulus and had a colonoscopy decompression. The patient has been asymptomatic until nine days ago where she developed abdominal distention and constipation. The patient has been using enemas to try to manually decompress her colon however her last bowel movement was two days ago and she has noticed significant the more distended abdomen and became nauseated today and noted that these were symptoms that is to occur with her last episode of sigmoid volvulus. The patient did not want to wait until she started vomiting and the CT scan of the abdomen and pelvis demonstrated a sigmoid volvulus. The patent leather sorter Dr. Ziegler requested warm water enema in his taking the patient for a colonoscopy decompression. I did ask if a repeat CT scan needed to be ordered and when this should be obtained. Allergies: Coded Allergies: amoxicillin (Unverified Allergy, Unknown, 01/19/25) Home Medications Home Medications Active Reported Imitrex* (Sumatriptan Succinate) 100 Mg Tablet 1 Tab PO PRN PRN give 1 tablet at onset of headache. May repeat in 2 hours as needed. Do not exceed 200mg/day total. Past Medical History Past Medical History Sigmoid volvulus in November of 2024 Past Surgical History Surgical History Comment , colonoscopy decompression of the sigmoid volvulus Family History Family History: Patient reports no known family medical history. Past Social History Social History Comment Patient denes history of smoking/ drinking alcohol nor any illicit drug use Full Code Status ROS ROS Except for positives in the HPI the rest of the 14 point review systems is negative Exam Vitals: Vital Signs Date Time Temp Pulse Resp B/P (MAP) Pulse Ox O2 Delivery O2 Flow Rate FiO2 01/19/25 15:40 01/19/25 15:08 97.4 68 15 100 0 General: Gen. No acute distress alert and oriented 4 Lungs clear to ascultation bilaterally, no wheezes rales or rhonchi appreciated Heart normal sinus rhythm no murmurs rubs or clicks noted Abdomen soft, moderate distention, mild upper abdominal tenderness and moderate lower abdominal tenderness, distant bowel sounds Lower extremities no clubbing cyanosis, nor edema appreciated bilaterally Diagnostic Data Last Recorded Lab Results: 01/19/25 1117 01/19/25 1117 Advance Care Planning Advanced Care plannin - 30 Minutes Problems: (1) Volvulus of sigmoid colon Status: Resolved Additional Plan # recurrent volvulus of the sigmoid colon # colonoscopy decompression on December [address] Ziegler gastroenterology is taking the patient for an emergent colonoscopy for decompression The patient has an appointment at [place] February 27 for a partial colectomy. # DVT prophylaxis scd's I spent a total of 17 minutes on reviewing various resuscitative measures/ ACP with the patient at the time of admission. The patient has decided on full code status. Date of Service: Jan 19, 2025 Billing Provider: CULLEN WORLEY DO Common Visit Codes: 41162-JAJRTHM INP/OBS CARE (MOD) Secondary Visit Codes: 57416-PPRUDVAZ CARE PLAN 30 MINUTES CULLEN WORLEY DO Jan 19, 2025 17:02
--- NOTE | 2025-01-19 17:14 | CONSULTATION REPORT - RESIDENT ---
Consult Providers to CC Resident Creating Document: RC AKINS RES History of Present Illness Reason for Admit\Complaint: Sigmoid volvulus History of Present Illness This is a 49-year-old healthy female with no significant past medical history who came to the hospital complaining of abdominal distention with tenderness and constipation. According to her, her last regular bowel movement was 1.5 weeks ago. She had been having small volume brown liquidy stools for the past 1.5 weeks, most likely diarrhea from stool impaction some point of the colon. Not associated with nausea/vomiting, fever, melena, hematochezia. She has had similar complaint 1 month ago and was diagnosed with sigmoid volvulus underwent decompression. She was diagnosed to have a redundant colon and is scheduled for a partial colectomy on February 27. She was diagnosed with sigmoid volvulus based on physical examination and imaging. She was taken to the OR directly from ER and underwent decompression for sigmoid volvulus. Allergies: Coded Allergies: amoxicillin (Unverified Allergy, Unknown, 01/19/25) Home Medications Home Medications Active Reported Imitrex* (Sumatriptan Succinate) 100 Mg Tablet 1 Tab PO PRN PRN give 1 tablet at onset of headache. May repeat in 2 hours as needed. Do not exceed 200mg/day total. Past Medical History Past Medical History Denies any specific past medical history Past Surgical History Surgical History Comment section, 18 years ago Family History Family History: Patient reports no known family medical history. Past Social History Social History Comment Denies any smoking, alcohol abuse or illicit drug use ROS ROS All are negative except positive pertinent as in HPI Exam Vitals: Vital Signs Date Time Temp Pulse Resp B/P (MAP) Pulse Ox O2 Delivery O2 Flow Rate FiO2 01/19/25 16:46 18 99 01/19/25 16:43 62 01/19/25 16:39 98.4 121/84 (96) Nasal Cannula 01/19/25 15:08 0 General: General: Well alert, well oriented, not confused, not agitated, not in acute distress, well cooperated during the physical. HEENT: Conjunctive are pink, sclerae clear, no icterus, pupil is equal in both sides, reactive to light, no ear discharge, no pharyngeal erythema or an edema. Neck: Supple, no JVD, no lymphadenopathy and thyromegaly. Chest: Equal air entry on both lungs, no added sounds, no wheeze. Cardiovascular: S1-S2 regular sinus rhythm and, regular rate, no gallops, no rubs, no murmurs Abdomen: Soft, mildly distended, sluggish bowel sounds in all quadrants, mild diffuse tenderness, no guarding, no rebound tenderness. Rectal tube in place. Extremities: No obvious deformities, no pitting edema bilaterally, capillary refill intact, peripheral pulsations are intact on both sides Central Nervous System: No focal neurological deficits, no motor or sensory weakness in all 4 extremities, could move all 4 extremities, 2+ deep tendon reflexes, negative Babinski. Musculoskeletal: No joint swelling, deformities, inflammations, and no scoliosis and back tenderness Skin: Warm and dry. Diagnostic Data Last Recorded Lab Results: 01/19/25 1117 01/19/25 111 Additional Plan Assessment: 49-year-old healthy female with no significant past medical history with redundant colon came with recurrent episode of sigmoid volvulus. Underwent decompression in the OR. Scheduled for partial colectomy in February. Plan: NPO for now. Rectal tube in place, watch her abdominal distention Vitals stable, CBC, serum electrolytes the normal range. Repeat erect abdominal x-ray shows rectal tube in place with decompressed sigmoid colon Continue IV fluids at the rate of 100 mL/hour and Zofran 4 mg q.6h p.r.n. Rc Akins MD Internal Medicine, PGY 1 [facility] Date of Service: Jan 19, 2025 Billing Provider: BOLA ESCAMILLA MD, SHIVANI, RES Jan 19, 2025 17:14
[2025-01-19] MEDS: normal saline 1000ml 1,000 ML IV SCH (20:00)
[2025-01-19] MEDS: docusate sod 100mg capsule PO SCH (20:00)
[2025-01-19] MEDS: K and/or MAG REPLACEMENT MC SCH (20:00)
[2025-01-20] MEDS ORDERED: glucagon, human recombinant 1mg kit SUBCUT PRN (02:15)
[2025-01-20] MEDS ORDERED: dextrose 50%-water 50ml dispensing syringe IV PRN (02:15)
[2025-01-20] MEDS ORDERED: DEXTROSE 15 GM of carb/4 tabs (each vial/BOTTLE has 4 tablets) PO PRN ×2 (02:15)
[2025-01-20] MEDS: dextrose 50%-water 50ml dispensing syringe IV PRN (02:29)
[2025-01-20 05:58] LABS: MEAN PLATELET VOLUME 8.0 FL (7.4-10.4); RED CELL DISTRIBUTION WIDTH 12.1 % (11.5-14.5)
[2025-01-20 06:04] LABS: CREATININE 0.63 MG/DL (0.40-0.90); TOTAL CARBON DIOXIDE 26.3 MMOL/L (24-32); eCRCL 93 ML/MIN; eGFR > 90 ML/MIN
[2025-01-20 06:45] VITALS: BP 102/58; PULSE 78; RESP 14; TEMP 98.3; O2SAT 99
[2025-01-20] MEDS: dextrose 50%-water 50ml dispensing syringe IV ONE (06:50)
[2025-01-20] MEDS: INSULIN LISPRO 100 UNIT/ML INSULN.PEN MULTI-DOSE SQ SCH (07:00)
[2025-01-20 08:00] VITALS: RESP 16
--- NOTE | 2025-01-20 09:09 | RADIOLOGY REPORT ---
Date: 01/20/2025 07:51 AM Examination: DI ABDOMEN,SINGLE VIEW(KUB) History: Re-evaluate sigmoid volvulus Comparison: DI ABDOMEN,SINGLE VIEW(KUB) on DOS: 12/03/24, DI ABDOMEN,SINGLE VIEW(KUB) on DOS: 12/02/24, DI ABDOMEN,SINGLE VIEW(KUB) on DOS: 12/03/24 TECHNIQUE: Single radiographic view of the abdomen. FINDINGS: Decreased gaseous distention status post tube placement. Large stool burden There is no definite evidence for pneumoperitoneum. No abnormal calcifications noted. IMPRESSION: Decreased gaseous distention status post tube placement. Large stool burden
[2025-01-20 11:14] VITALS: BP 99/60; PULSE 74; RESP 16; TEMP 97.6; O2SAT 99
--- NOTE | 2025-01-20 13:03 | PROGRESS NOTE- Residence ---
Progress Note - Resident Providers to CC Resident Creating Document: ROSETTE AKINS, KETAN ~ Central Line/PICC still needed: N\A Huerta-Non Protocol Huerta Indications Met/Not Met: F/C Indications Not Met Antibiotic Timeout Antibiotic Ordered?: No Subjective Patient was examined bedside. She was resting comfortably during examination. Her abd pain has improved, nausea well controlled with medication. She had a bowel movement today morning and the rectal tube came out during the BM. Objective Vital Signs Date Time Temp Pulse Resp B/P (MAP) Pulse Ox O2 Delivery O2 Flow Rate FiO2 01/20/25 11:14 97.6 74 16 99/60 (73) 99 Room Air 01/19/25 19:50 0.0 Result Diagram: 01/20/2545001/20/25450 General: Well alert, well oriented, not confused, not agitated, not in acute distress, well cooperated during the physical. HEENT: Conjunctive are pink, sclerae clear, no icterus, pupil is equal in both sides, reactive to light, no ear discharge, no pharyngeal erythema or an edema. Neck: Supple, no JVD, no lymphadenopathy and thyromegaly. Chest: Equal air entry on both lungs, no added sounds, no wheeze. Cardiovascular: S1-S2 regular sinus rhythm and, regular rate, no gallops, no rubs, no murmurs Abdomen: Soft, mildly distended, sluggish bowel sounds in all quadrants, mild diffuse tenderness, no guarding, no rebound tenderness. Rectal tube out. Extremities: No obvious deformities, no pitting edema bilaterally, capillary refill intact, peripheral pulsations are intact on both sides Central Nervous System: No focal neurological deficits, no motor or sensory weakness in all 4 extremities, could move all 4 extremities, 2+ deep tendon reflexes, negative Babinski. Musculoskeletal: No joint swelling, deformities, inflammations, and no scoliosis and back tenderness Skin: Warm and dry. Coagulation Studies General: Well alert, well oriented, not confused, not agitated, not in acute distress, well cooperated during the physical. HEENT: Conjunctive are pink, sclerae clear, no icterus, pupil is equal in both sides, reactive to light, no ear discharge, no pharyngeal erythema or an edema. Neck: Supple, no JVD, no lymphadenopathy and thyromegaly. Chest: Equal air entry on both lungs, no added sounds, no wheeze. Cardiovascular: S1-S2 regular sinus rhythm and, regular rate, no gallops, no rubs, no murmurs Abdomen: Mildly distended, tenderness on deep palpation on lower abdominal quadrants. Bowel sounds present on auscultation, soft, no guarding, no rigidity Extremities: No obvious deformities, no pitting edema bilaterally, capillary refill intact, peripheral pulsations are intact on both sides Central Nervous System: No focal neurological deficits, no motor or sensory weakness in all 4 extremities, could move all 4 extremities, 2+ deep tendon reflexes, negative Babinski. Musculoskeletal: No joint swelling, deformities, inflammations, and no scoliosis and back tenderness Skin: Warm and dry. Counseling Services Smoking & Tobacco Cessation: N/A Advance Care Planning Advanced Care planning: N/A Plan Plan Assessment: 49-year-old healthy female with no significant past medical history with redundant colon came with recurrent episode of sigmoid volvulus. Underwent decompression in the OR. Scheduled for partial colectomy in February at [place] Plan: Advance diet to full liquid and soft bland later as tolerated. The decompression tube has fallen out and, we will leave it as is. Vitals stable, CBC, serum electrolytes the normal range. Continue IV fluids at the rate of 100 mL/hour and Zofran 4 mg q.6h p.r.n. Needs to undergo partial colectomy sooner than later to prevent recurrence. No further intervention from GI during current hospitalization. We will sign off at this time. Patient is ready for discharge home from the GI standpoint. Rosette Akins MD Internal Medicine, PGY 1 [facility] Date of Service: Jan 20, 2025 Billing Provider: BOLA ESCAMILLA MD, SHIVANI, RES Jan 20, 2025 13:03 BOLA ESCAMILLA MD Jan 20, 2025 16:45
--- NOTE | 2025-01-20 17:15 | DISCHARGE SUMMARY ---
Discharge Summary Providers to CC ~ Discharge Summary Admission Diagnosis: Sigmoid volvulus Hospital Course DATE OF ADMISSION: 01/19/25 DATE OF DISCHARGE: 01/20/25 Discharge Diagnosis\\Comment: Volvulus of sigmoid colon, recurrent Operations\\Procedures: Endoscopic decompression Consultants: GI Jennifer Meeks Complications: None Condition on DC: Stable Continued Medications: Sumatriptan Succinate (Imitrex*) 100 Mg Tablet 1 TAB PO PRN PRN for headache, #1 TAB give 1 tablet at onset of headache. May repeat in 2 hours as needed. Do not exceed 200mg/day total. Discharge Summary: History of Present Illness From H&P: "This is a athletic and healthy 49-year-old female who was here in November with a sigmoid volvulus and had a colonoscopy decompression. The patient has been asymptomatic until nine days ago where she developed abdominal distention and constipation. The patient has been using enemas to try to manually decompress her colon however her last bowel movement was two days ago and she has noticed significant the more distended abdomen and became nauseated today and noted that these were symptoms that is to occur with her last episode of sigmoid volvulus. The patient did not want to wait until she started vomiting and the CT scan of the abdomen and pelvis demonstrated a sigmoid volvulus. The photographic reproduction technician Dr. Ziegler requested warm water enema in his taking the patient for a colonoscopy decompression. I did ask if a repeat CT scan needed to be ordered and when this should be obtained." Hospital Course Case was consulted with GI Dr. Ziegler and patient underwent endoscopic decompression without complication. Patient has scheduled appointment for colectomy on February 27 with her [place] surgeon and refuses to be evaluated by local surgeon. Patient did not experience further complications throughout the entire hospital stay and remained clinically and hemodynamically stable. P atient had a bowel movement and denies abdominal pain, nausea, or vomiting and verbalizes willingness for discharge. Patient was seen and examined on the day of discharge. On day of discharge, vss and labs unremarkable. All labs, diagnostic workups, discharge plan discussed with patient in details during visit before discharge. All questions and concerns answered to the best of my professional knowledge. Patient is cleared for discharge from GI standpoint by Dr. Ziegler. Patient is to be discharged to home to self and to follow-up with PCP within 2 weeks and her surgeon for scheduled colectomy as patient wishes. Physical Exam General: A&Ox 3, NAD HEENT: Normocephalic, PERRLA Neck: Supple, trachea midline, no JVD Chest: Clear to auscultation bilaterally Cardiovascular: RRR, S1&S2 GI: Soft and nontender; normoactive bowel sounds in all four quadrants Extremities: No cyanosis/clubbing/or edema BELT BUILDER HELPER: CN II-XII intact, no focal deficits Musculoskeletal: No paraspinal muscle tenderness, no muscle spasm Skin: Warm and intact *Problems/Diagnosis: (1) Volvulus of sigmoid colon Status: Resolved Total Time Spent on D/C: > 30 Minutes Date of Service: Jan 20, 2025 Billing Provider: GERDA BLAND Common Visit Codes: 91404-FVF/OBS DISCH DAY >30min GERDA BLAND Jan 20, 2025 17:14
== END 2025-01-20 16:13 | disposition home or self-care (01) | DRG 390 ==
LOC: ER 10:17 → SUR 3N 14:13 → UNDOADMIN 19:49 → SUR 3N 19:49
PROVIDERS: ADMIT Family Medicine; ATTEND Family Medicine
PROC: BW211ZZ Computerized Tomography (CT Scan) of Abdomen and Pelvis using Low Osmolar Contrast (ICD-10-PCS; 2025-01-19)
PROC: 0D9N80Z Drainage of Sigmoid Colon with Drainage Device, Via Natural or Artificial Opening Endoscopic (ICD-10-PCS; principal; 2025-01-19 16:28)
DX: K56.2 Volvulus (principal); Z87.891 Personal history of nicotine dependence; Z88.1 Allergy status to other antibiotic agents; Z79.899 Other long term (current) drug therapy
CPT/HCPCS: 36415; 45337; 74018; 74177; 80048; 80053; 81001; 81025; 82948; 83605; 83690; 83735; 84145; 85025; 86140; 87040; 87081; 96360; 99285; C1769; G0378; J1815; J2250; J2704; J3010; J3490; J7030; Q9967